=== PATIENT | female | born 1990 | race Caucasian/White ===

== ENCOUNTER 2017-02-26 12:06 | Inpatient (IN) | payer BC ==
[2017-02-26] VITALS (11 sets, daily range): BP systolic 130–145; BP diastolic 72–97
[~2017-02-26] VITALS: Ht 170.2 cm; Wt 101.8 kg
[2017-02-26 12:39] LABS: HEMATOCRIT 30.5 % (36.0-46.0); MCH 32.1 PG (29.0-34.0); MCHC 34.8 G/DL (30.0-36.0); MCV 92.4 FL (83-99); MEAN PLAT.VOLUME 10.6 uM^3 (9.5-12.4); PLATELET COUNT 191 K/uL (156-360); RBC DIS.WIDTH-CV 13.2 % (11.8-14.6); RBC DIS.WIDTH-SD 44.3 % (39-53); WHITE BLOOD COUNT 6.9 K/uL (4.1-10.2)
[2017-02-26 13:04] LABS: UR CREATININE CONCENTRATION 26.5 MG/DL
[2017-02-26 13:07] LABS: ALKALINE PHOSPHATASE 120 IU/L (3-129); ANION GAP 8 MEQ/L (2-14); CHLORIDE 107 MEQ/L (99-109); GFR ESTIMATE (CALCULATED) > 59 mL/min/; GLUCOSE 75 mg/dL (70-99); SAMPLE HEMOLYSIS CHECK 0; SAMPLE ICTERIC CHECK 0; SAMPLE LIPEMIA CHECK 0; SODIUM 136 MEQ/L (136-147); TOTAL BILIRUBIN 0.2 MG/DL (0.0-1.0); UREA NITROGEN (BUN) 9 mg/dL (9-23)
[2017-02-27] VITALS (29 sets, daily range): BP systolic 115–168; BP diastolic 62–107
[2017-02-27] MEDS ORDERED: MOTRIN800 MG PO (10:00)
[2017-02-27 10:28] LABS: HEMATOCRIT 30.7 % (36.0-46.0); MCV 93.3 FL (83-99)
[2017-02-28 04:11] VITALS: BP 147/86
[2017-02-28 07:06] LABS: EOSINOPHIL (%) 0.3 % (0-5); HEMATOCRIT 23.8 % (36.0-46.0); IMMATURE GRANULOCYTE (%) 0.6 % (0.0-0.7); IMMATURE GRANULOCYTE COUNT 0.1 K/uL; INSTRUMENT ABS NEUTROPHIL CT 7.9 K/uL; LYMPHOCYTE COUNT 2.1 K/uL (1.0-2.8); MCH 32.2 PG (29.0-34.0); MCHC 34.5 G/DL (30.0-36.0); MCV 93.3 FL (83-99); MEAN PLAT.VOLUME 10.7 uM^3 (9.5-12.4); MONOCYTE COUNT 1.4 K/uL (0-0.8); NEUTROPHIL (%) 69.1 % (45-76); NEUTROPHIL COUNT 7.9 K/uL (1.8-6.4); PLATELET COUNT 175 K/uL (156-360); RBC DIS.WIDTH-CV 13.4 % (11.8-14.6); RBC DIS.WIDTH-SD 45.1 % (39-53); WHITE BLOOD COUNT 11.5 K/uL (4.1-10.2)
[2017-02-28 07:25] LABS: RED BLOOD COUNT 2.55 M/uL (3.80-5.20)
[2017-02-28 08:04] VITALS: BP 136/94
[2017-02-28 10:58] VITALS: BP 126/82
[2017-02-28 13:25] VITALS: BP 130/81
[2017-02-28 19:18] VITALS: BP 155/90
[2017-02-28 23:15] VITALS: BP 129/87
[2017-03-01 02:43] VITALS: BP 139/92
[2017-03-01 08:55] VITALS: BP 136/88
[2017-03-01 10:48] VITALS: BP 124/61
[2017-03-01 15:09] VITALS: BP 140/90
== END 2017-03-01 18:11 | disposition home or self-care (01) | DRG 775 ==
LOC: LDRP-OP 12:06 → 2WEST 12:07 → LDRP-OP 04-08 14:06
PROVIDERS: Midwife; Nurse Practitioner
PROC: 3E0R3CZ (ICD-10-PCS; principal; 2017-02-26)
PROC: 10E0XZZ Delivery of Products of Conception, External Approach (ICD-10-PCS; principal; 2017-02-26)
PROC: 00HU33Z Insertion of Infusion Device into Spinal Canal, Percutaneous Approach (ICD-10-PCS; principal; 2017-02-26)
DX: O14.94 Unspecified pre-eclampsia, complicating childbirth (principal); O99.02 Anemia complicating childbirth; O99.214 Obesity complicating childbirth; O62.2 Other uterine inertia; E66.9 Obesity, unspecified; D64.9 Anemia, unspecified; O13.4 Gestational [pregnancy-induced] hypertension without significant proteinuria, complicating childbirth; Z37.0 Single live birth; Z3A.38 38 weeks gestation of pregnancy; Z68.30 Body mass index [BMI] 30.0-30.9, adult
CPT/HCPCS: 36415; 80053; 82570; 84156; 85014; 85018; 85025; 85027; C1755; G0378; J0595; J1200; J2210; J3010; J7120; Q0169